=== PATIENT | male | born 1950 | race Caucasian/White ===

== ENCOUNTER 2017-12-01 06:55 | Day surgery (SDC) | payer MEDICARE, MEDICAID ==
[~2017-12-01] VITALS: Ht 182.9 cm; Wt 66.2 kg
--- NOTE | ~2017-12-01 | OP ---
PATIENT NAME: BOBBI RUSSELL MEDICAL RECORD: [id number] :48 LOCATION:[facility] ADMISSION DATE: SURGEON: ALLYSON ARAIZA MD DATE OF OPERATION: 12/01/2017 SURGEON: Allyson Araiza MD ANESTHESIA: General anesthesia by Harjit Childers MD DIAGNOSIS: Elevated PSA of 9.04 on 07/29/2017. PROCEDURE: Transrectal ultrasound and prostate biopsy. FINDINGS: A 19-gram prostate, no hypoechoic areas. SPECIMENS: Prostate biopsy cores. BLOOD LOSS: None. CLINICAL HISTORY: This is a 66-year-old male referred by Dr. Sebastian with an elevated PSA. The PSA in April 2017 was 8.8. When it was repeated in July 2017, it was 9.04. He had just started with Dr. Sebastian recently, so he does not have any previous PSA measurements. He does not have any voiding symptoms. There is no family history of prostate cancer. He was in the [employer] in [facility] from 1967 to 1968. He does not believe that he was exposed to [place]. HE IS ALLERGIC TO PENICILLIN. He was given Levaquin IV for his prostate biopsy today. DESCRIPTION OF PROCEDURE: The patient was given IV sedation. He was placed into dorsal lithotomy position. The transrectal ultrasound probe was introduced. He has a very full bladder. We will relieve his bladder by inserting a red rubber catheter at the end of the procedure. A relatively small flat prostate was seen. Prostate size measurements were obtained. The prostate is only 19 grams in size. There were no hypoechoic areas seen. The prostate, although it is rather flat, is wide. Sextant biopsies were obtained with at least 3 cores from each sextant. Once all the cores were obtained, then the biopsy portion was terminated. The patient's penis was prepped and red rubber catheter was inserted to drain the bladder. The catheter was then removed entirely. The patient will be going home today. I will see him in followup next week to review the pathology results with him. TRANSINT:[id number] Voice Confirmation ID: [id number] DOCUMENT ID: [id number] ALLYSON ARAIZA MD at 1428 CC: [id number] DICTATION DATE: 12/01/17 1250 BAND MANAGER: 12/01/17 1331 [address] [facility] [address] [place] [address]
[~2017-12-01 06:55] MED LIST: OMEPRAZOLE20 M1 PO; VALIUM5 MG PO
[2017-12-01 08:27] VITALS: BP 115/68; BMI 19.8
[2017-12-01 08:31] VITALS: BP 115/68; Ht 182.9 cm; Wt 66.2 kg
== END 2017-12-01 14:30 | disposition home or self-care (01) ==
LOC: D.OPS 06:55 → D.PAN 07:30 → D.OPS 07:30 → EDSEX 07:30 → D.OPS 14:30
DX: C61 Malignant neoplasm of prostate (principal); D07.5 Carcinoma in situ of prostate; Z01.812 Encounter for preprocedural laboratory examination

== ENCOUNTER → 2017-12-15 08:56 | Outpatient (CLI) | payer MEDICARE, MEDICAID ==
[2017-12-01 08:31] VITALS: BMI 19.8
== END | disposition home or self-care (01) ==
LOC: D.NM 08:56
DX: C61 Malignant neoplasm of prostate (principal)

== ENCOUNTER → 2018-07-22 17:31 | Outpatient (CLI) | payer MEDICARE, MEDICAID ==
[2017-12-01 08:31] VITALS: BMI 19.8
[2018-07-22 18:26] LABS: CALC OSMOLALITY 254 mosm/kg (275-300); CREATININE - SERUM 0.7 mg/dL (0.6-1.3); GLUCOSE 87 mg/dL (74-106); POTASSIUM - SERUM 4.1 mmol/L (3.5-5.1); SODIUM 129 mmol/L (136-145); UREA NITROGEN 5 mg/dL (7-18); eGFR NON AFRICAN AMERICAN > 90 mL/min (90-120)
[2018-07-22 18:27] LABS: CALCIUM 9.2 mg/dL (8.5-10.1); CARBON DIOXIDE 25.9 mmol/L (21.0-32.0); CHLORIDE - SERUM 95 mmol/L (98-107)
== END | disposition home or self-care (01) ==
LOC: D.LABREF 17:31
PROVIDERS: ATTEND Legal Medicine
DX: E87.5 Hyperkalemia (principal); E83.52 Hypercalcemia